=== PATIENT | female | born 1990 | race African-American/Black ===

== ENCOUNTER 2016-12-16 18:07 | Emergency (ER) | payer OTHER ==
[~2016-12-16] VITALS: Ht 180.3 cm; Wt 115.6 kg
[~2016-12-16 18:07] MED LIST: NAPR-576 PO
[2016-12-16 18:33] VITALS: BP 126/77; PULSE 71; RESP 16; TEMP 99.2; O2SAT 99
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
[2016-12-16] MEDS ORDERED: CYCL1TAB29 PO (21:33)
[2016-12-16] MEDS ORDERED: NAPR500 PO (21:33)
--- NOTE | 2016-12-17 08:39 | EKG ---
Date Performed: 12/16/2016 Time Performed: 20:51:26 PTAGE: 26 years EKG: Sinus arrhythmia Normal ECG NO PREVIOUS TRACING DOCTOR: Carlos Eduardo Madrid Interpretating Date/Time 12/17/2016 08:36:44
== END 2016-12-16 21:51 | disposition home or self-care (01) ==
LOC: PHEFT 18:07
DX: S20.219A Contusion of unspecified front wall of thorax, initial encounter (principal); S00.33XA Contusion of nose, initial encounter; I49.8 Other specified cardiac arrhythmias; V49.40XA Driver injured in collision with unspecified motor vehicles in traffic accident, initial encounter
CPT/HCPCS: 70160; 71020; 84703; 93005

== ENCOUNTER → 2017-06-21 | Outpatient (CLI) | payer OTHER ==
[~2017-06-21] MED LIST changes: +CYCL1TAB29 PO; -NAPR-576 PO; +NAPR500 PO
== END ==
LOC: HPND 09:04
PROVIDERS: ATTEND Obstetrics & Gynecology
DX: O09.219 Supervision of pregnancy with history of pre-term labor, unspecified trimester (principal); O99.213 Obesity complicating pregnancy, third trimester; O34.211 Maternal care for low transverse scar from previous cesarean delivery; Z98.891 History of uterine scar from previous surgery; Z68.37 Body mass index [BMI] 37.0-37.9, adult; Z3A.36 36 weeks gestation of pregnancy
CPT/HCPCS: 76811